=== PATIENT | male | born 1980 | race African-American/Black ===

== ENCOUNTER 2021-08-04 02:21 | Inpatient (IN) | payer MEDICARE, MEDICAID ==
[~2021-08-04] VITALS: Ht 182.9 cm; Wt 111.1 kg
[2021-08-04] MEDS ORDERED: ONDANSETRON HCL 4MG/2ML INJ IV STA (02:31)
[2021-08-04] MEDS ORDERED: SODIUM CHLORIDE 0.9% 1,000 ML IV ONE ×2 (02:45→05:00)
[2021-08-04] MEDS ORDERED: LEVETIRACETAM 500MG PREMIX 100 ML IV ONE (02:45)
[2021-08-04 03:16] LABS: HEMATOCRIT. 41.8 % (42.0-52.0); HEMOGLOBIN. 12.9 g/dL (14.0-18.0); MEAN CORPUSCULAR HEMOGLOBIN 26.6 pg (28.0-32.0); MEAN CORPUSCULAR VOLUME 86.4 fL (80.0-94.0); MEAN PLATELET VOLUME 8.2 fl (7.4-10.4); PLATELET 332 x1000/uL (130-400); RED BLOOD CELL COUNT 4.83 mill/uL (4.7-6.1); RED CELL DISTRIBUTION WIDTH 15.6 % (11.6-14.6)
[2021-08-04 03:20] LABS: CLARITY URINE CLEAR (CLEAR); COLOR URINE YELLOW (YELLOW); KETONES URINE NEGATIVE (NEGATIVE); LEUKOCYTE ESTERASE URINE NEGATIVE (NEGATIVE); NITRITE URINE NEGATIVE (NEGATIVE); OCCULT BLOOD URINE NEGATIVE (NEGATIVE); PH URINE 6.5 (4.5-8.0); PROTEIN URINE 1+ (NEGATIVE); SPECIFIC GRAVITY URINE 1.025 (1.005-1.030)
[2021-08-04 03:24] LABS: CHLORIDE 104 mEq/L (98-107)
[2021-08-04 03:29] LABS: ETHANOL BLOOD < 10 mg/dL
[2021-08-04 03:32] LABS: BG CARBOXYHEMOGLOBIN 0.7 % (0.5-1.5); BG DEOXYHEMOGLOBIN 0.4 % (0.0-5.0); BG FRACTION INSPIRED OXYGEN 100; BG HCO3 ACT 9.8 mmol/L (22.0-26.0); BG METHEMOGLOBIN 0.3 % (0.0-1.5); BG OXYGEN SATURATION 99.6 % (92.0-98.5); BG OXYHEMOGLOBIN 98.6 % (94.0-97.0); BG PCO2 33.4 mmHg (35.0-45.0); BG PH 7.087 (7.350-7.450); BG PO2 370.2 mmHg (75.0-100.0); BG SAMPLE SITE RIGHT RADIAL; BG VENT MODE MASK - NRB
[2021-08-04 03:40] LABS: *BENZODIAZEPINES SCREEN URINE NEGATIVE (NEGATIVE); *COCAINE SCREEN URINE NEGATIVE (NEGATIVE); METHADONE URINE SCREEN NEGATIVE (NEGATIVE); OPIATES URINE SCREEN NEGATIVE (NEGATIVE)
[2021-08-04 03:41] LABS: *AMPHETAMINES SCREEN URINE PRESUMTIVE POSITIVE (NEGATIVE); *BARBITURATES SCREEN URINE NEGATIVE (NEGATIVE); CANNABINOID URINE SCREEN PRESUMTIVE POSITIVE (NEGATIVE); PHENCYCLIDINE URINE SCREEN NEGATIVE (NEGATIVE)
[2021-08-04 04:57] LABS: PLATELET ESTIMATE NORMAL
[2021-08-04] MEDS ORDERED: LORAZEPAM 2MG/ML CPJ IV PRN (07:00)
[2021-08-04] MEDS ORDERED: ENOXAPARIN 40MG/0.4ML SYR SUBCUT SCH (07:00)
[2021-08-04] MEDS ORDERED: HYDRALAZINE 20MG/ML VIAL IV PRN (07:00)
[2021-08-04] MEDS ORDERED: ONDANSETRON HCL 4MG/2ML INJ IV PRN (07:00)
[2021-08-04] MEDS ORDERED: DOCUSATE SODIUM 100MG CAPSULE PO PRN (07:00)
[2021-08-04] MEDS ORDERED: ACETAMINOPHEN 325MG TABLET PO PRN (07:00)
[2021-08-04] MEDS ORDERED: CLONIDINE 0.1MG TABLET PO PRN (07:00)
[2021-08-04] MEDS ORDERED: GUAIFENESIN 200MG/10ML SUGAR FREE UDC PO PRN (07:00)
[2021-08-04] MEDS ORDERED: MVI, ADULT NO.1 10 ML, FOLIC ACID 1 MG, THIAMINE HCL 100 MG in SODIUM CHLORIDE 0.9% 1,0... IV ONE (07:00)
[2021-08-04] MEDS ORDERED: IPRATROPIUM/ALBUTEROL 0.5-3(2.5)MG/3ML NEB HHN PRN (07:00)
[2021-08-04] MEDS ORDERED: MAGNESIUM/ALUMINUM HYDROXIDE/SIMETHICONE 30ML UDC PO PRN (07:00)
[2021-08-04] MEDS ORDERED: DIPHENHYDRAMINE 50MG/ML VIAL IV PRN (07:00)
[2021-08-04] MEDS ORDERED: MULTIVITAMINS,THER W-MINERALS TABLET PO SCH (09:00)
[2021-08-04] MEDS ORDERED: FOLIC ACID 1MG TABLET PO SCH (09:00)
[2021-08-04] MEDS ORDERED: THIAMINE HCL 100MG TABLET PO SCH (09:00)
[2021-08-04] MEDS ORDERED: LEVETIRACETAM 500MG PREMIX 100 ML IV SCH ×2 (09:00→21:00)
[2021-08-04 13:41] VITALS: BP 136/91
[2021-08-04 14:04] VITALS: BP 136/91
[2021-08-04] MEDS ORDERED: PHEN100C4 PO (14:25)
[2021-08-04] MEDS ORDERED: ELVI1TAB3 PO (14:25)
[2021-08-04] MEDS ORDERED: KEPP500 PO (14:25)
[2021-08-04] MEDS ORDERED: LAMC5 PO (14:25)
[2021-08-04 16:00] VITALS: BP 130/87
[2021-08-04 20:00] VITALS: BP 107/88
[2021-08-04] MEDS: SODIUM CHLORIDE 0.9% INJ 3ML FLUSH IVF SCH (21:19)
[2021-08-04] MEDS: ENOXAPARIN 30MG/0.3ML SYR SUBCUT SCH (21:19)
[2021-08-05] VITALS: BP 130/80
[2021-08-05 04:00] VITALS: BP 136/82
[2021-08-05] MEDS: SODIUM CHLORIDE 0.9% INJ 3ML FLUSH IVF SCH ×3 (05:21→20:28)
[2021-08-05 06:38] LABS: HEMATOCRIT. 35.9 % (42.0-52.0); HEMOGLOBIN. 11.7 g/dL (14.0-18.0); MEAN CORPUSCULAR HEMOGLOBIN 26.2 pg (28.0-32.0); MEAN CORPUSCULAR VOLUME 80.6 fL (80.0-94.0); MEAN PLATELET VOLUME 8.4 fl (7.4-10.4); PLATELET 261 x1000/uL (130-400); RED BLOOD CELL COUNT 4.45 mill/uL (4.7-6.1); RED CELL DISTRIBUTION WIDTH 15.5 % (11.6-14.6)
[2021-08-05] MEDS: THIAMINE HCL 100MG TABLET PO SCH (07:48)
[2021-08-05] MEDS: MULTIVITAMINS,THER W-MINERALS TABLET PO SCH (07:48)
[2021-08-05] MEDS: ENOXAPARIN 30MG/0.3ML SYR SUBCUT SCH ×2 (07:48→20:28)
[2021-08-05] MEDS: FOLIC ACID 1MG TABLET PO SCH (07:49)
[2021-08-05] MEDS: LEVETIRACETAM 500MG TABLET PO SCH ×2 (07:49→20:28)
[2021-08-05 08:00] VITALS: BP 130/86
[2021-08-05 08:37] LABS: CHLORIDE 108 mEq/L (98-107)
[2021-08-05 12:00] VITALS: BP 121/84
[2021-08-05 16:00] VITALS: BP 143/93
[2021-08-05 20:00] VITALS: BP 134/92
[2021-08-06] VITALS: BP 151/89
[2021-08-06 04:00] VITALS: BP 148/88
[2021-08-06] MEDS: SODIUM CHLORIDE 0.9% INJ 3ML FLUSH IVF SCH ×2 (05:02→14:00)
[2021-08-06 06:05] LABS: HEMATOCRIT. 38.9 % (42.0-52.0); HEMOGLOBIN. 12.5 g/dL (14.0-18.0); MEAN CORPUSCULAR VOLUME 81.1 fL (80.0-94.0); MEAN PLATELET VOLUME 8.7 fl (7.4-10.4); PLATELET 246 x1000/uL (130-400); RED CELL DISTRIBUTION WIDTH 15.7 % (11.6-14.6)
[2021-08-06 06:43] LABS: CHLORIDE 104 mEq/L (98-107)
[2021-08-06] MEDS: ENOXAPARIN 30MG/0.3ML SYR SUBCUT SCH (07:36)
[2021-08-06] MEDS: MULTIVITAMINS,THER W-MINERALS TABLET PO SCH (07:37)
[2021-08-06] MEDS: FOLIC ACID 1MG TABLET PO SCH (07:37)
[2021-08-06] MEDS: THIAMINE HCL 100MG TABLET PO SCH (07:37)
[2021-08-06] MEDS: LEVETIRACETAM 500MG TABLET PO SCH (07:37)
[2021-08-06 08:14] VITALS: BP 120/72
[2021-08-06 11:18] VITALS: BP 120/72
[2021-08-06 12:00] VITALS: BP 108/88
[2021-08-06 18:18] LABS: PLATELET ESTIMATE NORMAL
[2021-08-06 21:35] LABS: PLATELET ESTIMATE NORMAL
== END 2021-08-06 16:31 | disposition home or self-care (01) | DRG 101 ==
LOC: ER 02:33 → MICUSO 04:57 → EDBD 04:57 → EDBEDREQTM 08:50 → EDBEDREQSVC 08:50 → 6WST 11:47
PROVIDERS: ADMIT Internal Medicine; ATTEND Internal Medicine
DX: G40.901 Epilepsy, unspecified, not intractable, with status epilepticus (principal); E87.2 Acidosis; F12.90 Cannabis use, unspecified, uncomplicated; E86.0 Dehydration; Z82.49 Family history of ischemic heart disease and other diseases of the circulatory system; Z59.0 Homelessness
CPT/HCPCS: 36415; 36600; 71045; 72100; 80048; 80053; 80305; 80320; 81003; 82375; 82805; 83605; 84443; 84484; 85025; 97161; 99291; J1650; J1953; J2405; J3411; J3490; J7030; J7040; G0480